=== PATIENT | female | born 1950 | race American Indian/Alaskan Native ===

== ENCOUNTER 2017-06-11 10:51 | Emergency (ER) | payer MEDICARE, OTHER ==
--- NOTE | 2017-06-11 17:27 | Emergency Department Report ---
ED Lower Extremity HPI - General Chief Complaint: Extremity Problem,Nontraumatic Stated Complaint: right achilles pain Time Seen by Provider: 06/11/17 17:27 Source: patient Mode of arrival: Ambulatory Limitations: No Limitations - History of Present Illness Initial Comments: 66-year-old female past medical history CAD presents with complaint of pains in her right posterior ankle status post mechanical fall walking outside home today. Patient states that is significantly painful behind her right ankle above her heel. Patient has visible bruise to this area. Patient is accompanied by her son at bedside. Denies injury to any other body part denies headache dizziness shortness of breath chest pain abdominal pain or injury to any other extremity. Denies hitting her head or losing consciousness when she fell. Patient is awake alert and oriented 3 appears slightly uncomfortable due to ankle pain and states she can not bear weight secondary to pain behind her right ankle above her right heel. MD Complaint: foot injury Injury: Ankle: Right Type of Injury: inversion Place: home Severity: moderate Severity scale (0 -10): 7 Improves With: immobilization Worsens With: weight bearing, movement Context: fall Associated Symptoms: snap/pop sensation, swelling, able to partially bear weight Treatments Prior to Arrival: cold therapy - Related Data Previous Rx's Medication Instructions Recorded Last Taken Type Methocarbamol [Robaxin] 750 mg PO Q8H PRN #20 tablet 01/15/14 Unknown Rx HYDROcodone/ACETAMINOPHEN [Partridge 1 each PO Q6HR PRN #20 tablet 08/25/14 Unknown Rx 7.5-325 mg TAB] Ibuprofen [Motrin] 600 mg PO Q8H PRN #40 tablet 08/25/14 Unknown Rx oxyCODONE /ACETAMINOPHEN [Percocet 1 tab PO Q6HR PRN #16 tablet 06/11/17 Unknown Rx 5/325] Allergies Allergy/AdvReac Type Severity Reaction Status Date / Time Penicillins Allergy Hives Verified 01/15/14 07:25 ED Review of Systems ROS: Stated complaint: TORE LEFT ACHELLIES Other details as noted in HPI Constitutional: denies: chills, fever Eyes: denies: eye pain, eye discharge, vision change ENT: denies: ear pain, throat pain Respiratory: denies: cough, shortness of breath, wheezing Cardiovascular: denies: chest pain, palpitations Endocrine: no symptoms reported Gastrointestinal: denies: abdominal pain, nausea, diarrhea Genitourinary: denies: urgency, dysuria, discharge Musculoskeletal: as per HPI. denies: back pain, joint swelling, arthralgia Skin: denies: rash, lesions Neurological: denies: headache, weakness, paresthesias Psychiatric: denies: anxiety, depression Hematological/Lymphatic: denies: easy bleeding, easy bruising ED Past Medical Hx - Past Medical History Previous Medical History?: Yes Hx Hypertension: Yes Additional medical history: CAD. chronic back problems/pain - Surgical History Hx Coronary Stent: Yes (x 2) - Social History Smoking Status: Never Smoker - Medications Home Medications: Home Medications Medication Instructions Recorded Confirmed Last Taken Type Methocarbamol [Robaxin] 750 mg PO Q8H PRN #20 tablet 01/15/14 Unknown Rx HYDROcodone/ACETAMINOPHEN [Partridge 1 each PO Q6HR PRN #20 tablet 08/25/14 Unknown Rx 7.5-325 mg TAB] Ibuprofen [Motrin] 600 mg PO Q8H PRN #40 tablet 08/25/14 Unknown Rx oxyCODONE /ACETAMINOPHEN [Percocet 1 tab PO Q6HR PRN #16 tablet 06/11/17 Unknown Rx 5/325] ED Physical Exam - General Limitations: No Limitations General appearance: alert, in no apparent distress - Head Head exam: Present: atraumatic, normocephalic - Eye Eye exam: Present: normal appearance, PERRL, EOMI - ENT ENT exam: Present: mucous membranes moist - Neck Neck exam: Present: normal inspection, full ROM - Respiratory Respiratory exam: Present: normal lung sounds bilaterally. Absent: respiratory distress - Cardiovascular Cardiovascular Exam: Present: regular rate, normal rhythm. Absent: systolic murmur, diastolic murmur, rubs, gallop - GI/Abdominal GI/Abdominal exam: Present: soft, normal bowel sounds - Extremities Exam Extremities exam: Present: normal inspection - Expanded Lower Extremity Exam Right Lower Leg exam: Present: normal inspection Ankle exam: Present: full ROM, tenderness (tenderness in posterior right ankle region above he'll), swelling (positive Zhong test right lower extremity for Achilles tendon injury), ecchymosis (ecchymosis at right Achilles tendon area) Foot/Toe exam: Present: normal inspection (dorsiflexion and plantarflexion intact) Neuro vascular tendon exam: Present: no vascular compromise (distal dorsalis pedis and posterior tibial pulses intact) Gait: Positive: antalgic, unable to bear weight 1 - Pain and ecchymosis here 1 - Pain on palpation bruising and slight swelling on examination here - Back Exam Back exam: Present: normal inspection - Neurological Exam Neurological exam: Present: alert, oriented X3, CN II-XII intact, abnormal gait (pain secondary to ankle pain) - Psychiatric Psychiatric exam: Present: normal affect, normal mood - Skin Skin exam: Present: warm, dry, intact, normal color. Absent: rash ED Course Vital Signs 06/11/17 06/11/17 11:29 21:05 Temperature 98 F 97.9 F Pulse Rate 69 59 L Respiratory 20 16 Rate Blood Pressure 161/67 Blood Pressure 164/76 [Right] O2 Sat by Pulse 100 100 Oximetry ED Lower Extremity MDM - Medical Decision Making A/P: Suspicion of Achilles tendon rupture on the right side and/or partial tear , lower extremity injury, mechanical fall, right lower extremity pain 1-x-rays unremarkable 2-Zhong test is positive on right side, clinical suspicion for Achilles tendon rupture or at least partial injury to the tendon. Distal sensation and posterior tibial and dorsalis pedis pulses are intact 3-and given crutches and placed in posterior splint of the right lower extremity. I reinforced the importance of follow-up with orthopedics this week or as soon as possible to mitigate any long-term disability to the extremity 4-short course of narcotics and anti-inflammatories when necessary, RICE therapy , the patient's son present for evaluation and stated he would help his mother follow-up with orthopedics this week. Critical care attestation.: If time is entered above; I have spent that time in minutes in the direct care of this critically ill patient, excluding procedure time. ED Disposition Clinical Impression: Tendonitis, Achilles, right Achilles rupture, right Qualifiers: Encounter type: initial encounter Qualified Code(s): S86.011A - Strain of right Achilles tendon, initial encounter Achilles tendon injury Qualifiers: Encounter type: initial encounter Laterality: right Qualified Code(s): S86.001A - Unspecified injury of right Achilles tendon, initial encounter Disposition: TO HOME OR SELFCARE Is pt being admited?: No Does the pt Need Aspirin: No Condition: Stable Instructions: Crutch Instructions (ED), Achilles Tendinitis (ED), Splint Care ( ED), Tendinitis (ED) Prescriptions: oxyCODONE /ACETAMINOPHEN [Percocet 5/325] 1 tab PO Q6HR PRN #16 tablet PRN Reason: Pain Referrals: SUDARSHAN JEFFERSON MD [Staff Physician] - 3-5 Days [facility] [Provider Group] - 3-5 Days Forms: Accompanied Note, Work/School Release Form(ED) Time of Disposition: 19:22
[2017-06-11] MEDS ORDERED: PERCOCET 5/325 PO ONE (17:44)
[2017-06-11] MEDS ORDERED: ZOFRAN ODT PO ONE (17:44)
--- NOTE | 2017-06-11 20:00 | XRay Report ---
FINAL REPORT EXAM: XR TIBIA FIBULA 2V RT HISTORY: pain s/p fall TECHNIQUE: PRIORS: None. FINDINGS: No fracture is identified. The joint spaces are within normal limits. No focal bony lesion identified. No radiopaque foreign body seen. There is calcification seen posterior aspect the lower leg along the course of the Achilles tendon consider tube with calcific tendinopathy. IMPRESSION: Calcification along the course of the Achilles tendon likely reflecting calcific tendinopathy. No acute fracture is identified.
[2017-06-11 21:06] VITALS: BP 164/76
== END 2017-06-11 21:05 | disposition home or self-care (01) ==
LOC: ED 10:51
DX: M76.61 Achilles tendinitis, right leg (principal); S86.011A Strain of right Achilles tendon, initial encounter; I10 Essential (primary) hypertension; I25.10 Atherosclerotic heart disease of native coronary artery without angina pectoris
CPT/HCPCS: Q0162

== ENCOUNTER 2017-07-26 10:20 | Outpatient (CLI) | payer MEDICARE, OTHER ==
--- NOTE | 2017-07-26 12:37 | Mammography Report ---
Bilateral mammogram: Compared to 07/25/16. CAD study utilized. Findings: Predominance of adipose breast tissue bilaterally. Benign density and benign calcifications. No microcalcification. Normal axilla. Impression: Benign findings. Annual followup recommended. BI-RADS CATEGORY: 2 = Benign ACR BI-RADS MAMMOGRAPHIC CODES: 0 = Needs additional imaging evaluation; 1 = Negative; 2 = Benign; 3 = Probably benign; 4 = Suspicious; 5 = Malignant; 6 = Known biopsy-proven malignancy COMMENT: 1. Dense breast tissue, i.e., adenosis, fibrocystic changes, etc., may obscure an underlying neoplasm. 2. Approximately 10% of cancers are not detected with mammography. 3. A negative mammography report should not delay biopsy if a clinically suspicious mass is present. COMMENT: Patient follow-up letters are generated in [employer]. The
== END 2017-07-26 10:21 | disposition home or self-care (01) ==
LOC: MAMMO 10:20
PROVIDERS: ATTEND Internal Medicine
DX: Z12.31 Encounter for screening mammogram for malignant neoplasm of breast (principal)
CPT/HCPCS: 77067; G0202

== ENCOUNTER 2017-12-25 14:14 | Emergency (ER) | payer MEDICARE, OTHER ==
[2017-12-25 14:50] VITALS: BP 135/82
== END 2017-12-25 17:42 | disposition left against medical advice (07) ==
LOC: ED 14:14
DX: J40 Bronchitis, not specified as acute or chronic (principal); Z53.21 Procedure and treatment not carried out due to patient leaving prior to being seen by health care provider

== ENCOUNTER 2021-01-24 11:32 | Outpatient (CLI) | payer MEDICARE, OTHER ==
--- NOTE | 2021-01-24 13:06 | Mammography Report ---
DIGITAL SCREENING MAMMOGRAM WITH CAD, 01/24/2021 INDICATION: Routine screening mammography. TECHNIQUE: Digital bilateral 2D mammography was obtained in the craniocaudal and mediolateral obliq ue projections. This examination was interpreted with the benefit of Computer-Aided Detection analysi s. COMPARISON: 07/26/2017, 10/24/2018. FINDINGS: Breast Density: There are scattered areas of fibroglandular density. There is no evidence of dominant mass, suspicious calcifications or architectural distortion in eithe r breast. IMPRESSION: Follow up recommendation: Routine yearly BI-RADS Category 1: Negative. A "normal" or negative report should not discourage follow up or biopsy of a clinically significant f inding. A written summary of these findings will be mailed to the patient. The patient will be entered into a mammography reporting system which will generate a reminder letter for the patient's next appointmen t at the appropriate interval. The [employer] recommends yearly mammograms starting at age 40 and continuing as l marg[place] as a woman is in good health. Breast MRI is recommended for women with an approximate 20-25% or greater lifetime risk of breast cancer, including women with a strong family history of breast or ova alvin cancer or who have been treated for Hodgkin's disease. Signer Name: Fred Adkins MD Signed: 01/24/2021 1:02 PM Workstation Name: [id number]
== END 2021-01-24 11:33 | disposition home or self-care (01) ==
LOC: MAMMO 11:32
PROVIDERS: ATTEND Internal Medicine
DX: Z12.31 Encounter for screening mammogram for malignant neoplasm of breast (principal)
CPT/HCPCS: 77067